=== PATIENT | female | born 1955 | race Caucasian/White ===

== ENCOUNTER 2017-08-15 14:18 | Emergency (ER) | payer MEDICAID ==
[~2017-08-15] VITALS: Ht 154.9 cm; Wt 54.4 kg
[2017-08-15 15:07] LABS: CARBON DIOXIDE 30.8 mmol/L (21-32); CHLORIDE SERUM 105 mmol/L (98-107); CREATININE SERUM 0.7 mg/dL (0.6-1.0); GFR1 > 60 mL/min; GLUCOSE SERUM 118 mg/dL (74-106); POTASSIUM SERUM 4.2 mmol/L (3.5-5.1); SODIUM SERUM 140 mmol/L (136-145)
[2017-08-15 18:22] VITALS: BP 142/84
== END 2017-08-15 18:23 | disposition home or self-care (01) ==
LOC: ED 14:18
PROVIDERS: Emergency Medicine
DX: N39.0 Urinary tract infection, site not specified (principal); F17.200 Nicotine dependence, unspecified, uncomplicated; Z71.6 Tobacco abuse counseling
CPT/HCPCS: 36415; 99406

== ENCOUNTER 2017-08-15 21:59 | Emergency (ER) | payer MEDICAID ==
[2017-08-16 00:17] VITALS: BP 126/77
== END 2017-08-16 01:18 | disposition home or self-care (01) ==
LOC: ED 21:59
DX: R05 Cough (principal); F17.200 Nicotine dependence, unspecified, uncomplicated; I10 Essential (primary) hypertension; Z88.5 Allergy status to narcotic agent; Z88.6 Allergy status to analgesic agent

== ENCOUNTER 2017-08-16 07:47 | Emergency (ER) | payer MEDICAID ==
[2017-08-16 10:22] VITALS: BP 107/75
== END 2017-08-16 10:22 | disposition home or self-care (01) ==
LOC: ED 07:47
DX: J20.9 Acute bronchitis, unspecified (principal); I10 Essential (primary) hypertension; Z88.5 Allergy status to narcotic agent; Z88.6 Allergy status to analgesic agent
CPT/HCPCS: Q0092